=== PATIENT | female | born 1955 | race Caucasian/White ===

== ENCOUNTER 2021-05-12 15:22 | Emergency (ER) | payer BC ==
[~2021-05-12] VITALS: Ht 154.9 cm; Wt 70.8 kg
[2021-05-12 15:35] VITALS: BP 107/60
--- NOTE | 2021-05-12 15:50 | NUR ---
66 Y/O FEMALE SENT BY ONCOLOGIST FOR ABNORMAL LABS. PT DENIES PAIN, DENIES N/V, DENIES FEVER/CHILLS. PMH: DM, HTN, ASTHMA, PELVIC CA SX: 7 SURGERIES AND CHEMO Oct, ALLERGIES: PCN, ASA
[2021-05-12 16:23] LABS: BASOPHILS # (AUTO) 0.1 K/uL (0.00-0.22); BASOPHILS % (AUTO) 1.2 % (0.0-2.0); EOSINOPHILS # (AUTO) 0.1 K/uL (0-0.4); EOSINOPHILS % (AUTO) 0.7 % (0.0-4.0); HEMOGLOBIN 12.2 g/dL (12.0-16.0); LYMPHOCYTES # (AUTO) 1.9 K/uL (2.5-16.5); LYMPHOCYTES % (AUTO) 18.1 % (20.5-51.1); MEAN CORPUSCULAR HEMOGLOBIN 32 pg (27-31); MEAN CORPUSCULAR HGB CONC 35 g/dL (33-37); MEAN CORPUSCULAR VOLUME 92.8 fL (80-94); MONOCYTES # (AUTO) 0.4 K/uL (0.8-1.0); NEUTROPHILS # (AUTO) 7.8 K/uL (1.8-7.7); PLATELET COUNT (AUTO) 340 K/uL (140-450); RED BLOOD CELL COUNT(AUTO) 3.77 MIL/uL (4.20-5.40); RED CELL DISTRIBUTION WIDTH 14.8 % (11.6-13.7); WHITE BLOOD COUNT (AUTO) 10.3 K/uL (4.8-10.8)
[2021-05-12 16:51] LABS: ANION GAP 19.4 (8-16); CARBON DIOXIDE 18.3 mmol/L (21-32); CREATININE 3.2 mg/dL (0.6-1.3); POTASSIUM 4.7 mmol/L (3.5-5.1); TOTAL BILIRUBIN 0.6 mg/dL (0.0-1.0)
[2021-05-12 16:59] LABS: BILIRUBIN,URINE 2+ (NEGATIVE); BLOOD, URINE 1+ (NEGATIVE); COLOR,URINE YELLOW (YELLOW); LEUKOCYTE ESTERASE ,URINE 1+ (NEGATIVE); NITRITE, URINE NEGATIVE (NEGATIVE); PH,URINE 5.5 (5.0-9.0); UGLUCOSE NEGATIVE (NEGATIVE)
[2021-05-12 17:05] LABS: APPEARANCE,URINE HAZY (CLEAR)
--- NOTE | 2021-05-12 17:36 | NUR ---
ULTRASOUND AT BEDSIDE
[2021-05-12] MEDS ORDERED: LETR2.5T PO (18:33)
[2021-05-12] MEDS ORDERED: EVER10TA PO (18:33)
[2021-05-12] MEDS ORDERED: ONDA4TAB PO (18:33)
[2021-05-12] MEDS ORDERED: ATOR20TA PO (18:33)
[2021-05-12] MEDS ORDERED: METF500T PO (18:33)
[2021-05-12] MEDS ORDERED: TRAZ-343 PO (18:33)
[2021-05-12] MEDS ORDERED: GABA400C PO (18:33)
[2021-05-12] MEDS ORDERED: AMLO10TA PO (18:33)
[2021-05-12] MEDS ORDERED: OMEP40EC24 PO (18:33)
[2021-05-12] MEDS ORDERED: LOSA100T1 PO (18:33)
--- NOTE | 2021-05-12 19:14 | NUR ---
Pt report given to Regina. Transfer of care at this time.
--- NOTE | 2021-05-12 19:14 | NUR ---
Report received from ELIZABETH Hardin for continuation of patient care at this time.
--- NOTE | 2021-05-12 19:17 | NUR ---
Patient laying in bed locked in lowest position, x1 side rail up w HOB elevated. Patient talking on her phone in full sentences. Patient denies any pain. Patient reports she feels fine. Breathing even and unlabored. Patient connected to monitor w vss. NAD noted, will continue to monitor.
--- NOTE | 2021-05-12 20:00 | NUR ---
Linda sample collected from patient nares and handed to Usha from lab.
--- NOTE | 2021-05-12 21:50 | NUR ---
Patient laying in bed w eyes closed, locked in lowest postion, HOB slightly elevated. Breathing even and unlabored. VSS. Will continue to monitor.
--- NOTE | 2021-05-12 22:30 | NUR ---
Report called to ELIZABETH Griffin at [facility] for transfer of patient care.
--- NOTE | 2021-05-12 23:48 | NUR ---
[facility] AT BEDSIDE
[2021-05-12 23:55] VITALS: BP 110/62
--- NOTE | 2021-05-12 23:55 | NUR ---
Patient to be transferred to [facility]. Is being transferred due to INSURANCE REQUEST. Receiving facility has accepting physician and available space. ER physician has signed transfer form. Patient or responsible alliance party has agreed to transfer and signed form. Patient belongings inventoried and will be sent with patient. Copy of nursing notes, lab reports, EKG, Physicians Orders and X-rays to be sent with patient. Report called to ELIZABETH MASON at receiving facility. [facility] ambulance service used for transfer.
--- NOTE | 2021-05-13 | NUR ---
PT TAKEN BY [facility] TO [facility] ROOM 308B
== END 2021-05-13 | disposition short-term general hospital (02) ==
LOC: MED 15:22
DX: N17.9 Acute kidney failure, unspecified (principal); Z20.822 Contact with and (suspected) exposure to COVID-19; H02.846 Edema of left eye, unspecified eyelid; H02.843 Edema of right eye, unspecified eyelid; E11.9 Type 2 diabetes mellitus without complications; I10 Essential (primary) hypertension; Z88.0 Allergy status to penicillin; Z88.6 Allergy status to analgesic agent; Z85.53 Personal history of malignant neoplasm of renal pelvis; Z98.890 Other specified postprocedural states; Z79.899 Other long term (current) drug therapy; Z79.84 Long term (current) use of oral hypoglycemic drugs
CPT/HCPCS: 36415; 71045; 80053; 81001; 83880; 84484; 85025; 87086; 93005; 93971; 99285

== ENCOUNTER 2021-08-29 21:06 | Emergency (ER) | payer BC ==
[~2021-08-29] VITALS: Ht 154.9 cm; Wt 57.7 kg
[~2021-08-29 21:06] MED LIST: AMLO10TA PO; ATOR20TA PO; EVER10TA PO; GABA400C PO; LETR2.5T PO; LOSA100T1 PO; METF500T PO; OMEP40EC24 PO; ONDA4TAB PO; TRAZ-343 PO
[2021-08-29 21:35] VITALS: BP 124/69
--- NOTE | 2021-08-29 21:35 | NUR ---
TO BED AMBULATORY
--- NOTE | 2021-08-29 21:44 | NUR ---
PT AMBULATED TO BED 03
--- NOTE | 2021-08-29 21:57 | NUR ---
66 YO/F BIB SELF W C/O N/V X3 WEEKS OCCURING EVERYTIME SHE EATS OR DRINKS. PT REPORTS SHE HAS STOPPED TAKING HER HOME MEDS D/T N/V. PT ALSO C/O OF DIZZINESS WHICH SHE RELATES TO NOT EATING. PT DENIES, LOC, HEADACHE, CHEST PAIN, SOB, ABD PAIN, BLOOD IN VOMIT, URINE OR BOWEL PROBLEMS. PT AOX4, GCS15, BOWEL SOUNDS PRESENT THROUGH OUT W ABDOMEN SOFT, NON-TENDER. PT LAYING IN BED LOCKED IN LOWEST POSITION W X2 SIDERAILS UP FOR PT SAFETY. VSS. BREATHING EVEN AND UNLABORED. NAD NOTED, WILL CONTINUE TO MONITOR. PMH:HTN, DIABETES, UTERINE CANCER/SURGERY APPROX 5 YRS AGO ANGELICAA
--- NOTE | 2021-08-29 22:02 | NUR ---
PT REPORTS SHE DOES NOT FEEL LIKE VOIDING AT THIS TIME AND WANTS TO ATTEMPT IN A FEW MINUTES. PT PLACED IN GOWN, GIVEN A BLANKET.
[2021-08-29] MEDS ORDERED: ONDANSETRON 4 MG/2 ML VIAL IVP ONE (22:10)
[2021-08-29] MEDS ORDERED: NACL 0.9% 1,000 ML IV ONE (22:10)
--- NOTE | 2021-08-29 22:30 | NUR ---
UNABLE TO DRAW BLOOD FROM PT IV SITE. NOT ENOUGH BLOOD FLOW AT THIS TIME. ETHYLENE [employer]XIDE PANELBOARD OPERATOR AWARE.
--- NOTE | 2021-08-29 22:45 | NUR ---
PER LAB UNABLE TO COLLECT ENOUGH BLOOD AT THIS TIME, WILL RE-ATTEMPT LATER.
[2021-08-29 23:05] LABS: BASOPHILS % (AUTO) 0.4 % (0.0-2.0); EOSINOPHILS # (AUTO) 0.1 K/uL (0-0.4); EOSINOPHILS % (AUTO) 1.3 % (0.0-4.0); HEMATOCRIT 30.8 % (36-48); HEMOGLOBIN 10.2 g/dL (12.0-16.0); LYMPHOCYTES # (AUTO) 1.9 K/uL (2.5-16.5); LYMPHOCYTES % (AUTO) 18.3 % (20.5-51.1); MEAN CORPUSCULAR HEMOGLOBIN 29 pg (27-31); MEAN CORPUSCULAR HGB CONC 33 g/dL (33-37); MEAN CORPUSCULAR VOLUME 86.7 fL (80-94); MONOCYTES % (AUTO) 9.6 % (1.7-9.3); NEUTROPHILS # (AUTO) 7.4 K/uL (1.8-7.7); NEUTROPHILS % (AUTO) 70.4 % (42.2-75.2); PLATELET COUNT (AUTO) 568 K/uL (140-450); RED BLOOD CELL COUNT(AUTO) 3.55 MIL/uL (4.20-5.40); RED CELL DISTRIBUTION WIDTH 14.5 % (11.6-13.7); WHITE BLOOD COUNT (AUTO) 10.5 K/uL (4.8-10.8)
--- NOTE | 2021-08-29 23:18 | NUR ---
PT REPORTS FEELING SLIGHTLY BETTER, DENIES ONGOING NAUSEA. VSS.
--- NOTE | 2021-08-29 23:50 | NUR ---
PT AMBULATED TO BATHROOM W STEADY GAIT.
[2021-08-30 00:13] LABS: ALBUMIN 2.7 g/dL (3.4-5.0); ANION GAP 20.2 (8-16); CARBON DIOXIDE 17.6 mmol/L (21-32); CREATININE 1.3 mg/dL (0.6-1.3); POTASSIUM 5.8 mmol/L (3.5-5.1); TOTAL BILIRUBIN 0.5 mg/dL (0.0-1.0)
--- NOTE | 2021-08-30 00:31 | NUR ---
UNABLE TO COLLECT ENOUGH BLOOD COLLECTION PER LAB. ERMD AWARE.
[2021-08-30] MEDS ORDERED: NACL 0.9% 1,000 ML IV ONE (00:35)
[2021-08-30 01:08] LABS: APPEARANCE,URINE CLEAR (CLEAR); BILIRUBIN,URINE 1+ (NEGATIVE); BLOOD, URINE TRACE-I (NEGATIVE); COLOR,URINE YELLOW (YELLOW); LEUKOCYTE ESTERASE ,URINE TRACE (NEGATIVE); NITRITE, URINE NEGATIVE (NEGATIVE); UGLUCOSE NEGATIVE (NEGATIVE)
[2021-08-30 01:22] LABS: RBC,URINE 0-5 /HPF (0-5); WBC,URINE 20-60 /HPF (0-5)
[2021-08-30 02:04] LABS: ANION GAP 21.1 (8-16); CARBON DIOXIDE 16.6 mmol/L (21-32); CREATININE 1.2 mg/dL (0.6-1.3); POTASSIUM 4.7 mmol/L (3.5-5.1)
--- NOTE | 2021-08-30 02:07 | NUR ---
PT REPORTS SHE FEELS BETTER. NO NAUSEA AT THIS TIME. NO DIZZINESS. VSS. ERMD AT BEDSIDE.
[2021-08-30] MEDS ORDERED: ONDA-188 PO (02:11)
[2021-08-30 02:35] VITALS: BP 139/64
== END 2021-08-30 02:35 | disposition home or self-care (01) ==
LOC: MED 21:06
DX: R11.0 Nausea (principal); E86.0 Dehydration; E11.9 Type 2 diabetes mellitus without complications; I10 Essential (primary) hypertension; Z90.710 Acquired absence of both cervix and uterus; Z79.899 Other long term (current) drug therapy; Z88.0 Allergy status to penicillin; Z88.6 Allergy status to analgesic agent
CPT/HCPCS: 36415; 80048; 80053; 81001; 83690; 85025; 87086; 96361; 96374; 99285; J2405; J7030

== ENCOUNTER 2022-03-06 03:10 | Emergency (ER) | payer BC ==
[~2022-03-06] VITALS: Ht 154.9 cm; Wt 68.9 kg
[2022-03-06 03:10] VITALS: BP 179/87
[~2022-03-06 03:10] MED LIST changes: +METF-346 PO; -METF500T PO; +ONDA-188 PO
--- NOTE | 2022-03-06 03:10 | NUR ---
to bed ambulatory
--- NOTE | 2022-03-06 03:34 | NUR ---
66 yo/f presents to ED w c/o generalized body rash with itching which pt relates to chemotherapy session in february 07, 2022. Pt had same symptoms x1 month ago during a chemotherapy session, symptoms resolved w treatment then returned x2 days ago pt was seen at another hospital and treated w 3IM injections, symptoms resolved but returned yesterday. Pt took pepcid and prednisone at 1900 w/o relief. Pt denies any sob, fevers, chills, n/v/d or other symptoms. Welted rash noted to body, breathing even and unlabored, will continue to monitor. pmh: htn, cancer, diabetes allergies: penicillin, aspirin
--- NOTE | 2022-03-06 03:38 | NUR ---
ermd made aware of pt status.
[2022-03-06] MEDS ORDERED: FAMOTIDINE 20 MG/2 ML VIAL IVP ONE (04:05)
[2022-03-06] MEDS ORDERED: methylPREDNISolone SS 125 MG/2 ML VIAL IVP ONE (04:05)
[2022-03-06] MEDS ORDERED: diphenhydrAMINE 50 MG/ML VIAL IVP ONE (04:05)
--- NOTE | 2022-03-06 04:44 | NUR ---
pt reports feeling better, reports itching has resolved and weltz are improving.
--- NOTE | 2022-03-06 04:49 | NUR ---
pt bp 182/79 pt reports her bp is normally this high at this time and takes her AM med at home soon. ermd made aware of pt bp.
[2022-03-06] MEDS ORDERED: CLONIDINE HYDROCHLORIDE 0.1 MG TAB PO ONE (04:55)
[2022-03-06] MEDS ORDERED: EPIN1KIT31 IM (04:59)
[2022-03-06] MEDS ORDERED: DIPH25TA53 PO (04:59)
[2022-03-06] MEDS ORDERED: PRED20TA5 PO (04:59)
[2022-03-06] MEDS ORDERED: FAMO-90 PO (04:59)
--- NOTE | 2022-03-06 05:09 | NUR ---
pt refused catapress, reports she will manage her bp w her home med. delorisd made aware, per ermd pt ok for discharge.
[2022-03-06 05:10] VITALS: BP 182/79
--- NOTE | 2022-03-06 05:10 | NUR ---
Patient discharged with v/s stable. Written and verbal after care instructions given and explained. Patient alert, oriented and verbalized understanding of instructions. Ambulatory with steady gait. All questions addressed prior to discharge. ID band removed. Patient advised to follow up with PMD. Rx of benadryl, epipen, pepcid, deltasone given. Patient educated on indication of medication including possible reaction and side effects. Opportunity to ask questions provided and answered.
== END 2022-03-06 05:10 | disposition home or self-care (01) ==
LOC: MED 03:10
DX: L50.9 Urticaria, unspecified (principal); E11.9 Type 2 diabetes mellitus without complications; I10 Essential (primary) hypertension; Z85.41 Personal history of malignant neoplasm of cervix uteri; Z79.899 Other long term (current) drug therapy; Z88.0 Allergy status to penicillin; Z88.6 Allergy status to analgesic agent
CPT/HCPCS: 96374; 96375; 99284; J1200; J2930; J3490

== ENCOUNTER 2022-07-11 10:10 | Emergency (ER) | payer BC ==
[~2022-07-11] VITALS: Ht 157.5 cm; Wt 74.0 kg
[~2022-07-11 10:10] MED LIST changes: +DIPH25TA53 PO; +EPIN1KIT31 IM; +FAMO-90 PO; +PRED20TA5 PO
[2022-07-11 10:23] VITALS: BP 186/107
[2022-07-11] MEDS ORDERED: LIDOCAINE 2% 1000 MG/50 ML VIAL INJ ONE (11:15)
[2022-07-11] MEDS ORDERED: LIDOCAINE MPF 1% 10 MG/ML VIAL INJ ONE (11:55)
--- NOTE | 2022-07-11 13:00 | NUR ---
67/F PRESENTS TO ED WITH C/O FACIAL PAIN, STATES SHE HAD A MECHANICAL FALL AT HOME CAUSING HER TO FALL FORWARD ONTO HER FACE. LACERATION AND SOME BLEEDING NOTED NEAR NOSE. PATIENT DENIES DIZZINESS, VISION CHANGES OR LOC.
--- NOTE | 2022-07-11 15:00 | NUR ---
IV removed, catheter intact and site benign. Applied folded 4x4 gauze and tape to stop bleeding.
[2022-07-11 15:08] VITALS: BP 154/64
--- NOTE | 2022-07-11 15:08 | NUR ---
Patient discharged with v/s stable. Written and verbal after care instructions ABOUT NASAL FRACTURE AND HEAD INJURY given and explained. Patient verbalized understanding. Ambulatory with steady gait. All questions addressed prior to discharge. Advised to follow up with PMD.
== END 2022-07-11 15:08 | disposition home or self-care (01) ==
LOC: MED 10:10
DX: S01.21XA Laceration without foreign body of nose, initial encounter (principal); Z88.0 Allergy status to penicillin; Z79.82 Long term (current) use of aspirin; W18.30XA Fall on same level, unspecified, initial encounter; Y93.89 Activity, other specified; Y92.89 Other specified places as the place of occurrence of the external cause; Y99.8 Other external cause status
CPT/HCPCS: 12011; 70450; 72040; 99284; J2001

== ENCOUNTER 2022-07-13 11:43 | Emergency (ER) | payer BC ==
[~2022-07-13] VITALS: Ht 142.2 cm; Wt 74.4 kg
[2022-07-13 11:53] VITALS: BP 143/65
--- NOTE | 2022-07-13 12:01 | NUR ---
PT AMBULATED WITH ASSISTANCE TO BED 2
[2022-07-13 12:22] VITALS: BP 143/65
--- NOTE | 2022-07-13 12:23 | NUR ---
Patient discharged with v/s stable. Written and verbal after care instructions given and explained. Patient verbalized understanding. Ambulatory with steady gait. All questions addressed prior to discharge. Advised to follow up with PMD.
== END 2022-07-13 12:23 | disposition home or self-care (01) ==
LOC: MED 11:43
DX: S01.81XD Laceration without foreign body of other part of head, subsequent encounter (principal); Z48.02 Encounter for removal of sutures; R03.0 Elevated blood-pressure reading, without diagnosis of hypertension; I10 Essential (primary) hypertension; E11.9 Type 2 diabetes mellitus without complications; Z88.0 Allergy status to penicillin; Z79.82 Long term (current) use of aspirin; Z85.53 Personal history of malignant neoplasm of renal pelvis; Z79.4 Long term (current) use of insulin; Z79.899 Other long term (current) drug therapy; X58.XXXD Exposure to other specified factors, subsequent encounter
CPT/HCPCS: 99281

== ENCOUNTER 2022-07-20 12:15 | Emergency (ER) | payer BC ==
[~2022-07-20] VITALS: Ht 152.4 cm; Wt 90.7 kg
[2022-07-20 12:48] VITALS: BP 172/70
--- NOTE | 2022-07-20 12:50 | NUR ---
PT HERE FOR SUTURE REMOVAL
[2022-07-20 13:35] VITALS: BP 148/78
--- NOTE | 2022-07-20 13:35 | NUR ---
Patient discharged with v/s stable. Written and verbal after care instructions ABOUT SUTURE REMOVAL given and explained. Patient verbalized understanding. Ambulatory with steady gait. All questions addressed prior to discharge. Advised to follow up with PMD.
== END 2022-07-20 13:35 | disposition home or self-care (01) ==
LOC: MED 12:15
DX: S01.81XD Laceration without foreign body of other part of head, subsequent encounter (principal); E11.9 Type 2 diabetes mellitus without complications; I10 Essential (primary) hypertension; Z88.0 Allergy status to penicillin; Z88.6 Allergy status to analgesic agent; Z79.899 Other long term (current) drug therapy; Z85.53 Personal history of malignant neoplasm of renal pelvis; Z79.84 Long term (current) use of oral hypoglycemic drugs; X58.XXXD Exposure to other specified factors, subsequent encounter
CPT/HCPCS: 99281